=== PATIENT | female | born 1955 | race Caucasian/White ===

== ENCOUNTER 2017-12-27 22:42 | Emergency (ER) | payer OTHER, SELFPAY ==
[2017-12-27] VITALS (13 sets, daily range): BP systolic 93–134; BP diastolic 62–83; PULSE 82–94; RESP 13–30; TEMP 36.3; O2SAT 96–99
--- NOTE | 2017-12-27 00:45 | DI.CT_ITS ---
SYMPTOM/DIAGNOSIS: LT SIDED CHEST PAIN CTA THORAX: CT angiography was performed with multi slice acquisition and multi planar and 3D reconstruction. CT scan of the chest was performed according to the pulmonary embolus protocol. The peripheral pulmonary arteries are not well opacified. No evidence of a central pulmonary artery embolus is seen. The thoracic aorta is intact and of normal caliber. No dissection or aneurysm is present. Heart size is within normal limits. No significant pericardial effusion is seen. Coronary artery calcifications are present. No evidence of thoracic adenopathy is seen. No pleural effusion or pneumothorax is identified. Extensive emphysematous changes are present throughout the lungs. There is a lobulated soft tissue mass in the right upper lobe posteriorly which has shown significant increase in size and measures 2.8 cm. by 1.8 cm. No other pulmonary nodules are identified. No focal consolidating infiltrates are seen. The upper abdominal images are grossly unremarkable. There are mild degenerative changes seen in the spine. IMPRESSION: 1. Suboptimal evaluation of the peripheral pulmonary arteries. No evidence of a central pulmonary embolus. 2. No evidence of thoracic aortic dissection or aneurysm. 3. 2.8 cm. soft tissue pleural based mass in the right upper lobe posteriorly. Concerning for neoplasm. PET CT scan should be considered. 4. Severe emphysematous changes in the lungs.
[2017-12-27 22:59] LABS: Abs Immature Grans 0.03 k/cumm (0.0-0.09); Absolute Basophil Count 0.04 k/cumm (0.0-0.2); Absolute Eosinophil Count 0.16 k/cumm (0.0-0.7); Absolute Lymphocyte Count 2.99 k/cumm (1.2-3.4); Absolute Monocyte Count 1.05 k/cumm (0.11-0.7); Basophils % 0.3; Eosinophils % 1.4; HCT 40.5 % (36.0-46.0); HGB 13.2 g/dL (12.0-15.5); Immature Grans % 0.3; Lymphocytes % 25.6; Mean Corp. HGB Concentration 32.6 g/dL (32.0-36.0); Mean Corpuscular Hemoglobin 30.3 pg (27.0-33.0); Mean Corpuscular Volume 93.1 fL (80-95); Mean Platelet Volume 10.3 fL (8.0-11.0); Neutrophils % 63.4; Platelet Count 293 x1000/uL (130-400); RBC 4.35 m/cumm (4.00-5.20); RBC Distribution Width 13.1 % (11.7-14.6); White Blood Cell Count 11.69 k/cumm (4.4-10.8)
--- NOTE | 2017-12-27 22:59 | W.ED.GENAD ---
Discharge Plan Disposition Patient Disposition: HOME Condition: Stable Discharge Details Chief Complaint: Chest Pain Clinical Impression: Chest pain Reason For Visit: JONATHAN Primary Care Provider: Jose Koehler ED Provider: Larry Barbour Home Meds and New Rx's Prescriptions: Continue alprazolam 1 MG tablet 1 mg PO PRN PRNRF: 0 fluticasone-salmeterol [Advair Diskus] 1 EACH blister with device 1 puff Inhalation BID RF: 0 albuterol sulfate [ProAir HFA] 200 PUFF HFA aerosol inhaler 2 puff Inhalation PRN PRNRF: 0 tiotropium bromide [Spiriva with HandiHaler] 1 PUFF capsule, w/inhalation device 1 cap Inhalation DAILY RF: 0 baclofen 10 MG tablet 10 mg PO PRN PRNRF: 0 prednisone 2.5 MG tablet 2.5 mg PO DAILY RF: 0 gabapentin 300 MG capsule 600 - 900 mg PO DIRECTED RF: 0 montelukast 10 MG tablet 10 mg PO DAILY RF: 0 furosemide 20 MG tablet 20 mg PO PRN PRNRF: 0 omeprazole 20 mg Capsule,Delayed Release(Dr/Ec) 20 mg PO BID RF: 0 Discharge Instructions Instructions: Chest Pain (ED) Additional Instructions: Your cat scan showed a lung mass. You need to follow up with a primary care in this area to establish care and have referrals made to oncology as soon as possible. I have placed you on our care manger's follow up list to try and assist you in finding a local provider return to the emergency department for severe worsening of pain, fevers or difficulty breathing worse from baseline Discharge Data Discharge Physician: Larry Barbour Medical Decision Making 62 yo female with hx of copd normally on 8 LNC per the pt who comes in with cp that started around 8pm while sitting at home. Denies sob, n/v, diaphoresis, pain with exertion. I suspect her pain is musculoskeletal in nature given reproducible nature, and it is descrbied as intermittent and sharp stabbing sensation. no radation of pain, diaphoresis, n/v and no pain with exertion so doubt acs at this time, ecg unremrakble. Given the sharp stabbing sensation of the pain will obtain imaging to eval for pe and dissection. pt's labs unremarkable, first CTA infiltrated in arm, I placed u/s iv and images obtained, I do no see any acute pathology, awaiting vrad, will send second troponin labs unremarkable, her pain has much improved and she now does remember straininer her left arm while moving o2 bottles at home. Her CTA shows no acute pathology but does have a lung mass. she is aware of this but hasn't had follow up for this. Her pcp is in [place] per pt and can't get her meds filled here due to having [place] per pt. Will place on career information specialist's list to have her f/u with a pcp in this area [place] for the lung mass and establish local care. Return precautions given Differential Diagnosis chest wall pain, nstemi, acs, pe, dissection Imaging Data Radiologic Study: Attestation: I personally reviewed and interpreted this imaging study as follows: Imaging: CT Scan My impression: no acute findings, lung mass Radiologist's impression: lung mass Lab Data Lab results reviewed: Yes I reviewed the patient's lab results. Lab results narrative: no significant abnormalities ECG Data Attestation: I personally reviewed and interpreted this ECG (s) as follows: Prior ECG tracings: available for review Interpretation: normal sinus rhythm, rate of 93, pr 162, no acute st t wave changes HPI General Mode of arrival: EMS. Date/Time Provider Initiated Documentation: 12/27/17 22:50. Limitations to Documentation: no limitations. Information obtained by: patient. History of Present Illness 62 year old F presents to the emergency department with the chief complaint of chest pain, described as moderate, with intensity rated at 5. Quality is described as stabbing, and is localized to the chest. Patient reports no radiation. Patient started experiencing this hour(s) (3) and it has been intermittent. No relieving factors improve symptom(s), No exacerbating factors reported . Patient notes no other symptoms.. Patient did receive the following treatments prior to arrival, none Related Data Home Medications Medication Instructions Recorded Confirmed albuterol sulfate [ProAir HFA] 2 puff INHALATION PRN PRN 10/05/16 12/27/17 alprazolam 1 mg PO PRN PRN 10/05/16 12/27/17 baclofen 10 mg PO PRN PRN 10/05/16 12/27/17 fluticasone-salmeterol [Advair 1 puff INHALATION BID 10/05/16 12/27/17 Diskus] furosemide 20 mg PO PRN PRN 10/05/16 12/27/17 gabapentin 600 - 900 mg PO DIRECTED 10/05/16 12/27/17 montelukast 10 mg PO DAILY 10/05/16 12/27/17 prednisone 2.5 mg PO DAILY 10/05/16 12/27/17 tiotropium bromide [Spiriva with 1 cap INHALATION DAILY 10/05/16 12/27/17 HandiHaler] omeprazole 20 mg PO BID 12/27/17 12/27/17 Allergies Allergy/AdvReac Type Severity Reaction Status Date / Time hydromorphone [From Dilaudid] AdvReac Unverified 12/27/17 22:52 General Stated Complaint: Chest Pain CASA: 2 Review of Systems Review of Systems All systems reviewed & are unremarkable except as noted in HPI and below Constitutional Denies chills, Denies fever(s) and Denies weakness Eyes Denies loss of vision ENT Denies change in voice Cardiovascular Reports chest pain and Denies dyspnea Respiratory Denies dyspnea Gastrointestinal Denies abdominal pain, Denies nausea and Denies vomiting Genitourinary Denies dysuria Musculoskeletal Denies joint swelling Integumentary/Breasts Denies rash Neurologic Denies loss of vision and Denies weakness Psychiatric Denies depression Endocrine Denies cold intolerance and Denies heat intolerance Allergic/Immunologic Reports urticaria [facility] Social History Smoking/Tobacco Use Status: Former Tobacco Use Exam Const General: no acute distress Orientation: alert HENMT Head: normal to inspection Ears: external ears normal General nose exam: external nose normal Mouth: moist mucous membranes Eyes General: appearance normal, both eyes and all related structures Neck Neck: normal visual inspection Chest Chest: normal inspection of the chest and other (no rashes, pain with palpation to the left upper chest) Resp Effort & Inspection: normal respiratory effort and able to speak in complete sentences Cardio Rate: regular rate Skin General skin exam: no rashes or lesions noted Neuro General: alert and oriented x3 Extrem General: normal to inspection Psych Mental Status: mental status grossly normal Course Vital Signs Temperature 36.3 C L 12/27/17 22:36 Pulse 94 H 12/27/17 22:36 Respiratory Rate 20 12/27/17 22:36 Blood Pressure 134/83 12/27/17 22:36 Pulse Oximetry 99 12/27/17 22:36 Temperature 36.3 C L 12/27/17 22:36 Temperature Source Skin 12/27/17 22:36 Pulse 94 H 12/27/17 22:36 Respiratory Rate 20 12/27/17 22:36 Respiratory Effort 12/27/17 22:49 Blood Pressure 134/83 12/27/17 22:36 Pulse Oximetry 99 12/27/17 22:36 Oxygen Delivery Method Nasal Cannula 12/27/17 22:36 Oxygen Flow Rate 8 12/27/17 22:36 Pain Level 9 12/27/17 22:36
[2017-12-27 23:02] LABS: Absolute Neutrophil Count 7.41 k/cumm (1.2-6.7)
[2017-12-27] MEDS: Aspirin 325 MG TAB PO (23:02)
[2017-12-27 23:16] LABS: ALT 31 U/L (12-78); AST 16 U/L (15-37); Albumin 3.2 g/dL (3.4-5.0); Alkaline Phosphatase 103 U/L (46-116); Anion Gap 5.1 mmol/L (3-11); BUN 15 mg/dL (7-18); Bilirubin, Total 0.2 mg/dL (0.2-1.0); CO2 34.9 mmol/L (21.0-32.0); CREATININE 0.63 mg/dL (0.55-1.02); Calcium 8.7 mg/dL (8.5-10.1); Chloride 102 mmol/L (98-107); Glucose 121 mg/dL (70-100); Potassium 3.6 mmol/L (3.5-5.1); Sodium 142 mmol/L (136-145); Total Protein 6.7 g/dL (6.4-8.2); Troponin I < 0.02 ng/mL (0.00-0.06)
[2017-12-27] MEDS: fentaNYL 100 MCG/2 ML VIAL IVP (23:21)
[2017-12-27 23:22] LABS: PTT Activated 22.5 sec (21.0-31.4)
[2017-12-27] MEDS: Omnipaque 350 MG/ML 100 ML BTL IJ (23:50)
[2017-12-28] VITALS: PULSE 82; RESP 23; O2SAT 96
[2017-12-28 00:02] VITALS: BP 149/55; PULSE 83; PULSE 86; RESP 22; O2SAT 94
[2017-12-28 00:10] VITALS: PULSE 84; RESP 13; O2SAT 96
[2017-12-28 00:16] VITALS: BP 143/76; PULSE 82; PULSE 84; RESP 20; O2SAT 95
[2017-12-28 00:50] LABS: Troponin I < 0.02 ng/mL (0.00-0.06)
[2017-12-28] MEDS: Omnipaque 350 MG/ML 100 ML BTL IJ (00:55)
--- NOTE | 2017-12-28 02:03 | DI.VRAD_ITS ---
EXAM: CT Angiography Chest With Intravenous Contrast EXAM DATE/TIME: Exam ordered 12/27/2017 10:58 PM CLINICAL HISTORY: 62 years old, female; Pain; Chest pain; Left-sided chest pain; Prior surgery; Surgery date: 6+ months; Surgery type: Shoulder surgery; Patient HX: Left sided chest pain severe; Additional info: ? Pe or disecton TECHNIQUE: Axial computed tomographic angiography images of the chest with intravenous contrast using pulmonary embolism protocol. MIP reconstructed images were created and reviewed. Coronal and sagittal reformatted images were created and reviewed. CONTRAST: 216 mL of Omnipaque 350 administered intravenously. COMPARISON: CT CHEST FOR PULMONARY EMBOLUS 10/05/2016 2:58 PM FINDINGS: Pulmonary arteries: Unremarkable. No pulmonary embolism. Aorta: Atherosclerotic aorta. No aneurysm. Lungs: Extensive centrilobular emphysema. There is a 2.3 x 1.7 cm lobular soft tissue mass in the right posterior upper lobe which has increased in size since the prior study, previously 1.3 x 0.9 cm, highly suspicious for neoplasm. Pleural space: Unremarkable. No significant effusion. No pneumothorax. Heart: Unremarkable. No cardiomegaly. No significant pericardial effusion. Bones/joints: There is a surgical anchor in the right humerus. No suspicious osseous findings. Soft tissues: Unremarkable. Lymph nodes: No pathologic size adenopathy. Upper abdomen: There is a right posterior diaphragmatic hernia containing fat. IMPRESSION: Enlarging soft tissue mass in the posterior right upper lobe highly suspicious for neoplasm. Suggest correlation with PET CT. Extensive centrilobular emphysema. No evidence of aortic dissection or pulmonary emboli. Dictated and Authenticated by: Gayle Cunningham MD. Ordering:YELENA CAMEJO MD
[2017-12-28 03:12] VITALS: BP 143/76; PULSE 84; RESP 20; TEMP 36.3; O2SAT 95
--- NOTE | 2017-12-28 08:24 | PDOC.ERCMPRO ---
Care Management Progress Note 12/28/17-Pt seen for chest pain on 12/27/[address] Josselyn Barbour . Lung mass found on imaging. Faxed f/u THANH referral to [facility] as Dr. Eusebia Benoit is listed as Pt's PCP. TIERRA left a VM for Marysol Quijano'juan , Clinical Coordinator.
--- NOTE | 2017-12-28 08:31 | CMPROGNOTE_ITS ---
Care Management Progress Note 12/28/17-Pt seen for chest pain on 12/27/[address] Josselyn Barbour . Lung mass found on imaging. Faxed f/u THANH referral to [facility] as Dr. Eusebia Benoit is listed as Pt's PCP. TIERRA left a VM for Marysol Quijano'juan , Clinical Coordinator.
== END 2017-12-28 02:19 | disposition home or self-care (01) ==
PROVIDERS: Emergency Provider Emergency Medicine; PCP Family Medicine
DX: R07.9 Chest pain, unspecified (principal); R91.8 Other nonspecific abnormal finding of lung field; J44.9 Chronic obstructive pulmonary disease, unspecified; Z87.891 Personal history of nicotine dependence; Z99.81 Dependence on supplemental oxygen
CPT/HCPCS: 36415; 71275; 80053; 93005; 96374; 99285; 83735; 84484; 85025; 85610; 85730; 93010; J3490

== ENCOUNTER 2018-01-15 00:40 | Outpatient (CLI) | payer OTHER, SELFPAY ==
[2018-01-15] MEDS: Gadoterate meglumine 20 ML VIAL 10 ML IVP (15:05)
--- NOTE | 2018-01-15 15:20 | DI.MRI_ITS ---
SYMPTOMS/DIAGNOSIS: RIGHT LUNG MASS, R91.8, ? METS MRI OF THE BRAIN: T2 sagittal, T1, T2, FLAIR, diffusion and gradient-echo axial and post gadolinium T1 axial and coronal sequences were performed. No intracranial hemorrhage, mass or infarct is seen. There are a few tiny high signal lesions, which may represent mild small vessel disease. There are no abnormal areas of enhancement. The ventricles are normal in size. There is some fluid in the right mastoid air cells. The left mastoid air cells show minimal amount of fluid. The orbits and pituitary are unremarkable. The vascular flow voids appear intact. IMPRESSION: No evidence of metastatic disease. A few tiny high signal lesions in the white matter could represent early small vessel disease, but are nonspecific.
== END 2018-01-15 01:00 ==
PROVIDERS: PCP Family Medicine; Visit Provider Surgery
DX: R91.8 Other nonspecific abnormal finding of lung field (principal); I67.9 Cerebrovascular disease, unspecified
CPT/HCPCS: 70553

== ENCOUNTER 2018-02-12 02:01 | Outpatient (CLI) | payer OTHER, SELFPAY | END 2018-02-12 02:21 | PROVIDERS: PCP Family Medicine; Visit Provider Radiology Radiation Oncology | DX: R69 Illness, unspecified (principal) ==

== ENCOUNTER 2018-04-30 11:40 | Outpatient (REF) | payer OTHER, SELFPAY ==
[2018-05-05 15:55] LABS: 6-monoacetylmorphine Not Detected ng/mL (Cutoff: 25); Amphetamines Presumptive Positive ng/mL (Cutoff: 500); Barbiturates Negative ng/mL (Cutoff: 200); Benzodiazepines Negative ng/mL (Cutoff: 100); Buprenorphine Not Detected ng/mL (Cutoff: 5); Cocaine Negative ng/mL (Cutoff: 150); Codeine Not Detected ng/mL (Cutoff: 25); Comment Normal; Creatinine, U 214.5 mg/dL; Dihydrocodeine Not Detected ng/mL (Cutoff: 25); EDDP Not Detected ng/mL (Cutoff: 25); Fentanyl Not Detected ng/mL (Cutoff: 2); Hydrocodone Not Detected ng/mL (Cutoff: 25); Hydromorphone Not Detected ng/mL (Cutoff: 25); Hydromorphone-3-beta-glucuroni Not Detected ng/mL (Cutoff: 100); Meperidine Not Detected ng/mL (Cutoff: 25); Methadone Not Detected ng/mL (Cutoff: 25); Morphine Not Detected ng/mL (Cutoff: 25); N-desmethyltapentadol Not Detected ng/mL (Cutoff: 50); Naloxone Not Detected ng/mL (Cutoff: 25); Norbuprenorphine Not Detected ng/mL (Cutoff: 5); Norfentanyl Not Detected ng/mL (Cutoff: 2); Norhydrocodone Not Detected ng/mL (Cutoff: 25); Normeperidine Not Detected ng/mL (Cutoff: 25); Noroxycodone Present ng/mL (Cutoff: 25); Noroxymorphone Present ng/mL (Cutoff: 25); O-desmethyltramadol Not Detected ng/mL (Cutoff: 25); Phencyclidine Negative ng/mL (Cutoff: 25); Propoxyphene Not Detected ng/mL (Cutoff: 25); Specific Gravity 1.016; Tapentadol Not Detected ng/mL (Cutoff: 25); Tetrahydrocannabinol Negative ng/mL (Cutoff: 50); Tramadol Not Detected ng/mL (Cutoff: 25); pH 5.7
[2018-05-07 09:47] LABS: MDMA (Ecstasy) Negative ng/mL (Cutoff: 25); Methamphetamine Negative ng/mL (Cutoff: 25); Phentermine Negative ng/mL (Cutoff: 25); Pseudoephedrine/Ephedrine Negative ng/mL (Cutoff: 25)
== END 2018-04-30 12:00 ==
LOC: LBN 11:40
PROVIDERS: Visit Provider Nurse Practitioner Family
DX: M96.1 Postlaminectomy syndrome, not elsewhere classified (principal); Z79.891 Long term (current) use of opiate analgesic
CPT/HCPCS: 80307; 80324; 80364

== ENCOUNTER 2018-07-30 13:19 | Outpatient (REF) | payer OTHER, MEDICAID, SELFPAY ==
[2018-08-02 21:56] LABS: 6-monoacetylmorphine Not Detected ng/mL (Cutoff: 25); Amphetamines Presumptive Positive ng/mL (Cutoff: 500); Barbiturates Negative ng/mL (Cutoff: 200); Benzodiazepines Presumptive Positive ng/mL (Cutoff: 100); Buprenorphine Not Detected ng/mL (Cutoff: 5); Cocaine Negative ng/mL (Cutoff: 150); Codeine Not Detected ng/mL (Cutoff: 25); Comment Normal; Creatinine, U 213.1 mg/dL; Dihydrocodeine Not Detected ng/mL (Cutoff: 25); EDDP Not Detected ng/mL (Cutoff: 25); Fentanyl Not Detected ng/mL (Cutoff: 2); Hydrocodone Not Detected ng/mL (Cutoff: 25); Hydromorphone Not Detected ng/mL (Cutoff: 25); Hydromorphone-3-beta-glucuroni Not Detected ng/mL (Cutoff: 100); Meperidine Not Detected ng/mL (Cutoff: 25); Methadone Not Detected ng/mL (Cutoff: 25); Morphine Not Detected ng/mL (Cutoff: 25); N-desmethyltapentadol Not Detected ng/mL (Cutoff: 50); Naloxone Not Detected ng/mL (Cutoff: 25); Norbuprenorphine Not Detected ng/mL (Cutoff: 5); Norfentanyl Not Detected ng/mL (Cutoff: 2); Norhydrocodone Not Detected ng/mL (Cutoff: 25); Normeperidine Not Detected ng/mL (Cutoff: 25); Noroxycodone Present ng/mL (Cutoff: 25); Noroxymorphone Present ng/mL (Cutoff: 25); O-desmethyltramadol Not Detected ng/mL (Cutoff: 25); Phencyclidine Negative ng/mL (Cutoff: 25); Propoxyphene Not Detected ng/mL (Cutoff: 25); Specific Gravity 1.018; Tapentadol Not Detected ng/mL (Cutoff: 25); Tetrahydrocannabinol Negative ng/mL (Cutoff: 50); Tramadol Not Detected ng/mL (Cutoff: 25); pH 5.7
[2018-08-03 08:36] LABS: 2-OH-Ethyl-Flurazepam Negative ng/mL (Cutoff: 100); 7-NH-Clonazepam Negative ng/mL (Cutoff: 100); 7-NH-Flunitrazepam Negative ng/mL (Cutoff: 50); Alpha OH-Alprazolam 191 ng/mL (Cutoff: 100); Alpha-OH-Triazolam Negative ng/mL (Cutoff: 100); Benzodiazepines Interpretation Positive.; Lorazepam Negative ng/mL (Cutoff: 100); Temazepam Negative ng/mL (Cutoff: 100)
[2018-08-04 05:34] LABS: MDA (Ecstasy Metabolite) Negative ng/mL (Cutoff: 25); MDMA (Ecstasy) Negative ng/mL (Cutoff: 25); Methamphetamine Negative ng/mL (Cutoff: 25); Phentermine Negative ng/mL (Cutoff: 25); Pseudoephedrine/Ephedrine Negative ng/mL (Cutoff: 25)
== END 2018-07-30 13:39 ==
LOC: LBN 13:19
PROVIDERS: PCP Nurse Practitioner Family; Visit Provider Nurse Practitioner Family
DX: M96.1 Postlaminectomy syndrome, not elsewhere classified (principal); Z79.891 Long term (current) use of opiate analgesic
CPT/HCPCS: 80307; 80324; 80364; 80346

== ENCOUNTER 2018-11-20 15:12 | Outpatient (REF) | payer OTHER, MEDICAID, SELFPAY ==
[2018-11-25 04:01] LABS: 6-monoacetylmorphine Not Detected ng/mL (Cutoff: 25); Amphetamines Presumptive Positive ng/mL (Cutoff: 500); Barbiturates Negative ng/mL (Cutoff: 200); Benzodiazepines Negative ng/mL (Cutoff: 100); Buprenorphine Not Detected ng/mL (Cutoff: 5); Cocaine Negative ng/mL (Cutoff: 150); Codeine Not Detected ng/mL (Cutoff: 25); Comment Normal; Creatinine, U 253.5 mg/dL; Dihydrocodeine Not Detected ng/mL (Cutoff: 25); EDDP Not Detected ng/mL (Cutoff: 25); Fentanyl Not Detected ng/mL (Cutoff: 2); Hydrocodone Not Detected ng/mL (Cutoff: 25); Hydromorphone Not Detected ng/mL (Cutoff: 25); Hydromorphone-3-beta-glucuroni Not Detected ng/mL (Cutoff: 100); Meperidine Not Detected ng/mL (Cutoff: 25); Methadone Not Detected ng/mL (Cutoff: 25); Morphine Not Detected ng/mL (Cutoff: 25); N-desmethyltapentadol Not Detected ng/mL (Cutoff: 50); Naloxone Not Detected ng/mL (Cutoff: 25); Norbuprenorphine Not Detected ng/mL (Cutoff: 5); Norfentanyl Not Detected ng/mL (Cutoff: 2); Norhydrocodone Not Detected ng/mL (Cutoff: 25); Normeperidine Not Detected ng/mL (Cutoff: 25); Noroxycodone Present ng/mL (Cutoff: 25); Noroxymorphone Present ng/mL (Cutoff: 25); O-desmethyltramadol Not Detected ng/mL (Cutoff: 25); Phencyclidine Negative ng/mL (Cutoff: 25); Propoxyphene Not Detected ng/mL (Cutoff: 25); Specific Gravity 1.017; Tapentadol Not Detected ng/mL (Cutoff: 25); Tetrahydrocannabinol Presumptive Positive ng/mL (Cutoff: 50); Tramadol Not Detected ng/mL (Cutoff: 25); pH 5.7
[2018-11-27 08:31] LABS: Carboxy-THC Interpretation Positive.; Delta-9 CarboxyThc by LC-MS/MS 3 ng/mL (Cutoff:<3); MDMA (Ecstasy) Negative ng/mL (Cutoff: 25); Methamphetamine Negative ng/mL (Cutoff: 25); Phentermine Negative ng/mL (Cutoff: 25); Pseudoephedrine/Ephedrine Negative ng/mL (Cutoff: 25)
== END 2018-11-20 15:32 ==
LOC: LBN 15:12
PROVIDERS: PCP Nurse Practitioner Family; Visit Provider Nurse Practitioner Family
DX: M96.1 Postlaminectomy syndrome, not elsewhere classified (principal); Z79.891 Long term (current) use of opiate analgesic
CPT/HCPCS: 80307; 80324; 80349; 80364

== ENCOUNTER 2019-02-14 14:00 | Outpatient (REF) | payer OTHER, MEDICAID, SELFPAY ==
[2019-02-18 08:01] LABS: 2-Hydroxy Ethyl Flurazepam Not Detected ng/mL (Cutoff: 10); Alpha-Hydroxy Midazolam Not Detected ng/mL (Cutoff: 10); Alpha-Hydroxy Triazolam Not Detected ng/mL (Cutoff: 10); Alpha-Hydroxyalprazolam Not Detected ng/mL (Cutoff: 10); Alpha-OH-alprazolam Glucuronid Present ng/mL (Cutoff: 50); Alprazolam Not Detected ng/mL (Cutoff: 10); Amphetamines Presumptive Positive ng/mL (Cutoff: 500); Barbiturates Negative ng/mL (Cutoff: 200); Chlordiazepoxide Not Detected ng/mL (Cutoff: 10); Clobazam Not Detected ng/mL (Cutoff: 10); Clonazepam Not Detected ng/mL (Cutoff: 10); Cocaine Negative ng/mL (Cutoff: 150); Comment Normal; Creatinine, U 359.6 mg/dL; Diazepam Not Detected ng/mL (Cutoff: 10); Flurazepam Not Detected ng/mL (Cutoff: 10); Lorazepam Not Detected ng/mL (Cutoff: 10); Lorazepam Glucuronide Not Detected ng/mL (Cutoff: 50); Midazolam Not Detected ng/mL (Cutoff: 10); N-Desmethylclobazam Not Detected ng/mL (Cutoff: 200); Oxazepam Glucuronide Not Detected ng/mL (Cutoff: 50); Phencyclidine Negative ng/mL (Cutoff: 25); Prazepam Not Detected ng/mL (Cutoff: 10); Temazepam Not Detected ng/mL (Cutoff: 10); Temazepam Glucuronide Not Detected ng/mL (Cutoff: 50); Tetrahydrocannabinol Negative ng/mL (Cutoff: 50); Triazolam Not Detected ng/mL (Cutoff: 10); Zolpidem Phenyl-4-Carboxy acid Not Detected ng/mL (Cutoff: 10); pH 5.7
[2019-02-18 09:18] LABS: MDMA (Ecstasy) Negative ng/mL (Cutoff: 25); Methamphetamine Negative ng/mL (Cutoff: 25); Phentermine Negative ng/mL (Cutoff: 25); Pseudoephedrine/Ephedrine Negative ng/mL (Cutoff: 25)
[2019-02-18 16:55] LABS: Codeine Not Detected ng/mL (Cutoff: 25)
[2019-02-18 16:56] LABS: Morphine Not Detected ng/mL (Cutoff: 25)
[2019-02-18 16:57] LABS: 6-monoacetylmorphine Not Detected ng/mL (Cutoff: 25)
[2019-02-18 16:58] LABS: Hydrocodone Not Detected ng/mL (Cutoff: 25); Norhydrocodone Not Detected ng/mL (Cutoff: 25)
[2019-02-18 16:59] LABS: Dihydrocodeine Not Detected ng/mL (Cutoff: 25); Hydromorphone Not Detected ng/mL (Cutoff: 25)
[2019-02-18 17:00] LABS: Hydromorphone-3-beta-glucuroni Not Detected ng/mL (Cutoff: 100)
[2019-02-18 17:01] LABS: Noroxycodone Present ng/mL (Cutoff: 25)
[2019-02-18 17:02] LABS: Fentanyl Not Detected ng/mL (Cutoff: 2); Noroxymorphone Present ng/mL (Cutoff: 25)
[2019-02-18 17:03] LABS: Meperidine Not Detected ng/mL (Cutoff: 25); Norfentanyl Not Detected ng/mL (Cutoff: 2)
[2019-02-18 17:04] LABS: Naloxone Not Detected ng/mL (Cutoff: 25); Normeperidine Not Detected ng/mL (Cutoff: 25)
[2019-02-18 17:05] LABS: EDDP Not Detected ng/mL (Cutoff: 25); Methadone Not Detected ng/mL (Cutoff: 25); Propoxyphene Not Detected ng/mL (Cutoff: 25)
[2019-02-18 17:06] LABS: O-desmethyltramadol Not Detected ng/mL (Cutoff: 25); Tramadol Not Detected ng/mL (Cutoff: 25)
[2019-02-18 17:07] LABS: N-desmethyltapentadol Not Detected ng/mL (Cutoff: 50); Tapentadol Not Detected ng/mL (Cutoff: 25)
[2019-02-18 17:08] LABS: Buprenorphine Not Detected ng/mL (Cutoff: 5); Norbuprenorphine Not Detected ng/mL (Cutoff: 5)
== END 2019-02-14 14:20 ==
LOC: LBN 14:00
PROVIDERS: PCP Nurse Practitioner Family; Visit Provider Nurse Practitioner Family
DX: M96.1 Postlaminectomy syndrome, not elsewhere classified (principal); Z79.891 Long term (current) use of opiate analgesic
CPT/HCPCS: 80307; 80324; 80347; 80364

== ENCOUNTER 2019-02-26 13:16 | Outpatient (CLI) | payer OTHER, MEDICAID, SELFPAY ==
[2019-02-26 13:24] VITALS: BP 170/89; PULSE 85; RESP 24; TEMP 36.8; O2SAT 94
[2019-02-26] MEDS: Bupivacaine 0.25% Pres-Free 30 ML VIAL IJ (14:25)
[2019-02-26 14:33] VITALS: PULSE 86; O2SAT 94
--- NOTE | 2019-02-26 14:33 | PDOC.PAIN_ITS ---
Pain Clinic Procedure Note Procedure Note Procedure Note: PAIN CLINIC PROCEDURE NOTE PRE-OPERATIVE DIAGNOSIS: MYOFASCIAL PAIN POST-OPERATIVE DIAGNOSIS: SAME ABOVE PATIENT WAS BROUGHT IN PROCEDURE ROOM AND KEPT IN SEATED POSITION. O2 MONITOR WAS PLACED AND PATIENT WAS KEPT ON HER HOME SUPPLEMENTAL O2. CONSENT WAS OBTAINED AFTER EXPLANATION OF THE PROCEDURE AND POTENTIAL RISKS OF BLEEDING, INFECTION, SORENESS, WORSENING PAIN, PNEUMOTHORAX. PROPER TIME OUT WAS PERFORMED IN PRESENT WITH RN. TRIGGER POINTS WERE IDENTIFIED WITH PALPATION OVER BILATERAL TRAPEZIUS, RIGHT LATERAL SCAPULA AND MARKED WITH STERILE MARKER. SKINW PREPPED IN STERILE FASHION WITH CLOROHEXADINE. THEN 22 GAUGE 1.5IN NEEDLE PENET RATED TO THE IDENTIFIED TRIGGER POINTS, ~1.5CC OF SOLUTION CONTAINING 1:1 MIX OF 0.25% BUPIVOCAINE AND 1% LIDOCAINE WAS INJECTED IN EACH TRIGGER POINTS. MUSCLE TWITCHING WAS OBSERVED AFTER MULTIPLE PASSES OF THE NEEDLE AT EACH TRIGGER POINTS. O2 SATURATION WAS MONITORED AND REMAIN UNCHANGED. PATIENT TOLERATED PROCEDURE WELL WITHOUT ISSUE. CHERISE PASTOR MD PAIN MANAGEMENT
== END 2019-02-26 13:36 ==
PROVIDERS: PCP Nurse Practitioner Family; Visit Provider Internal Medicine
DX: M79.18 Myalgia, other site (principal)
CPT/HCPCS: 20552

== ENCOUNTER 2019-05-29 14:35 | Outpatient (REF) | payer OTHER, MEDICAID, SELFPAY ==
[2019-06-02 09:06] LABS: 2-Hydroxy Ethyl Flurazepam Not Detected ng/mL (Cutoff: 10); 6-monoacetylmorphine Not Detected ng/mL (Cutoff: 25); Alpha-Hydroxy Midazolam Not Detected ng/mL (Cutoff: 10); Alpha-Hydroxy Triazolam Not Detected ng/mL (Cutoff: 10); Alpha-Hydroxyalprazolam Not Detected ng/mL (Cutoff: 10); Alpha-OH-alprazolam Glucuronid Not Detected ng/mL (Cutoff: 50); Alprazolam Not Detected ng/mL (Cutoff: 10); Amphetamines Presumptive Positive ng/mL (Cutoff: 500); Barbiturates Negative ng/mL (Cutoff: 200); Buprenorphine Not Detected ng/mL (Cutoff: 5); Chlordiazepoxide Not Detected ng/mL (Cutoff: 10); Clobazam Not Detected ng/mL (Cutoff: 10); Clonazepam Not Detected ng/mL (Cutoff: 10); Cocaine Negative ng/mL (Cutoff: 150); Codeine Not Detected ng/mL (Cutoff: 25); Comment Normal; Creatinine, U 289.7 mg/dL; Diazepam Not Detected ng/mL (Cutoff: 10); Dihydrocodeine Not Detected ng/mL (Cutoff: 25); EDDP Not Detected ng/mL (Cutoff: 25); Fentanyl Not Detected ng/mL (Cutoff: 2); Flurazepam Not Detected ng/mL (Cutoff: 10); Hydrocodone Not Detected ng/mL (Cutoff: 25); Hydromorphone Not Detected ng/mL (Cutoff: 25); Hydromorphone-3-beta-glucuroni Not Detected ng/mL (Cutoff: 100); Lorazepam Not Detected ng/mL (Cutoff: 10); Lorazepam Glucuronide Not Detected ng/mL (Cutoff: 50); Meperidine Not Detected ng/mL (Cutoff: 25); Methadone Not Detected ng/mL (Cutoff: 25); Midazolam Not Detected ng/mL (Cutoff: 10); Morphine Not Detected ng/mL (Cutoff: 25); N-Desmethylclobazam Not Detected ng/mL (Cutoff: 200); N-desmethyltapentadol Not Detected ng/mL (Cutoff: 50); Naloxone Not Detected ng/mL (Cutoff: 25); Norbuprenorphine Not Detected ng/mL (Cutoff: 5); Norfentanyl Not Detected ng/mL (Cutoff: 2); Norhydrocodone Not Detected ng/mL (Cutoff: 25); Normeperidine Not Detected ng/mL (Cutoff: 25); Noroxycodone Present ng/mL (Cutoff: 25); Noroxymorphone Present ng/mL (Cutoff: 25); O-desmethyltramadol Not Detected ng/mL (Cutoff: 25); Oxazepam Glucuronide Not Detected ng/mL (Cutoff: 50); Phencyclidine Negative ng/mL (Cutoff: 25); Prazepam Not Detected ng/mL (Cutoff: 10); Propoxyphene Not Detected ng/mL (Cutoff: 25); Specific Gravity 1.017; Tapentadol Not Detected ng/mL (Cutoff: 25); Temazepam Not Detected ng/mL (Cutoff: 10); Temazepam Glucuronide Not Detected ng/mL (Cutoff: 50); Tetrahydrocannabinol Negative ng/mL (Cutoff: 50); Tramadol Not Detected ng/mL (Cutoff: 25); Triazolam Not Detected ng/mL (Cutoff: 10); Zolpidem Phenyl-4-Carboxy acid Not Detected ng/mL (Cutoff: 10); pH 5.6
[2019-06-04 05:39] LABS: MDA (Ecstasy Metabolite) Negative ng/mL (Cutoff: 25); MDMA (Ecstasy) Negative ng/mL (Cutoff: 25); Methamphetamine Negative ng/mL (Cutoff: 25); Phentermine Negative ng/mL (Cutoff: 25); Pseudoephedrine/Ephedrine Negative ng/mL (Cutoff: 25)
== END 2019-05-29 14:55 ==
LOC: LBN 14:35
PROVIDERS: PCP Nurse Practitioner Family; Visit Provider Nurse Practitioner Family
DX: M96.1 Postlaminectomy syndrome, not elsewhere classified; Z79.891 Long term (current) use of opiate analgesic
CPT/HCPCS: 80307; 80324; 80347; 80364

== ENCOUNTER 2019-08-22 13:43 | Outpatient (REF) | payer OTHER, MEDICAID, SELFPAY ==
[2019-08-28 13:25] LABS: 2-Hydroxy Ethyl Flurazepam Not Detected ng/mL (Cutoff: 10); 6-monoacetylmorphine Not Detected ng/mL (Cutoff: 25); Alpha-Hydroxy Midazolam Not Detected ng/mL (Cutoff: 10); Alpha-Hydroxy Triazolam Not Detected ng/mL (Cutoff: 10); Alpha-Hydroxyalprazolam Not Detected ng/mL (Cutoff: 10); Alpha-OH-alprazolam Glucuronid Present ng/mL (Cutoff: 50); Alprazolam Not Detected ng/mL (Cutoff: 10); Amphetamines Negative ng/mL (Cutoff: 500); Barbiturates Negative ng/mL (Cutoff: 200); Buprenorphine Not Detected ng/mL (Cutoff: 5); Chlordiazepoxide Not Detected ng/mL (Cutoff: 10); Clobazam Not Detected ng/mL (Cutoff: 10); Clonazepam Not Detected ng/mL (Cutoff: 10); Cocaine Negative ng/mL (Cutoff: 150); Codeine Not Detected ng/mL (Cutoff: 25); Comment Normal; Creatinine, U 285.6 mg/dL; Diazepam Not Detected ng/mL (Cutoff: 10); Dihydrocodeine Not Detected ng/mL (Cutoff: 25); EDDP Not Detected ng/mL (Cutoff: 25); Fentanyl Not Detected ng/mL (Cutoff: 2); Flurazepam Not Detected ng/mL (Cutoff: 10); Hydrocodone Not Detected ng/mL (Cutoff: 25); Hydromorphone Not Detected ng/mL (Cutoff: 25); Hydromorphone-3-beta-glucuroni Not Detected ng/mL (Cutoff: 100); Lorazepam Not Detected ng/mL (Cutoff: 10); Lorazepam Glucuronide Not Detected ng/mL (Cutoff: 50); Meperidine Not Detected ng/mL (Cutoff: 25); Methadone Not Detected ng/mL (Cutoff: 25); Midazolam Not Detected ng/mL (Cutoff: 10); Morphine Not Detected ng/mL (Cutoff: 25); N-Desmethylclobazam Not Detected ng/mL (Cutoff: 200); N-desmethyltapentadol Not Detected ng/mL (Cutoff: 50); Naloxone Not Detected ng/mL (Cutoff: 25); Norbuprenorphine Not Detected ng/mL (Cutoff: 5); Norfentanyl Not Detected ng/mL (Cutoff: 2); Norhydrocodone Not Detected ng/mL (Cutoff: 25); Normeperidine Not Detected ng/mL (Cutoff: 25); Noroxycodone Present ng/mL (Cutoff: 25); Noroxymorphone Present ng/mL (Cutoff: 25); O-desmethyltramadol Not Detected ng/mL (Cutoff: 25); Oxazepam Glucuronide Not Detected ng/mL (Cutoff: 50); Phencyclidine Negative ng/mL (Cutoff: 25); Prazepam Not Detected ng/mL (Cutoff: 10); Propoxyphene Not Detected ng/mL (Cutoff: 25); Specific Gravity 1.019; Tapentadol Not Detected ng/mL (Cutoff: 25); Temazepam Not Detected ng/mL (Cutoff: 10); Temazepam Glucuronide Not Detected ng/mL (Cutoff: 50); Tetrahydrocannabinol Negative ng/mL (Cutoff: 50); Tramadol Not Detected ng/mL (Cutoff: 25); Triazolam Not Detected ng/mL (Cutoff: 10); Zolpidem Phenyl-4-Carboxy acid Not Detected ng/mL (Cutoff: 10); pH 5.6
== END 2019-08-22 14:03 ==
LOC: LBN 13:43
PROVIDERS: PCP Nurse Practitioner Family; Visit Provider Nurse Practitioner Family
DX: G89.29 Other chronic pain (principal); Z79.891 Long term (current) use of opiate analgesic
CPT/HCPCS: 80307; 80347; 80364

== ENCOUNTER 2019-12-11 13:38 | Outpatient (REF) | payer OTHER, MEDICAID, SELFPAY ==
[2019-12-15 14:23] LABS: 2-Hydroxy Ethyl Flurazepam Not Detected ng/mL (Cutoff: 10); 6-monoacetylmorphine Not Detected ng/mL (Cutoff: 25); Alpha-Hydroxy Midazolam Not Detected ng/mL (Cutoff: 10); Alpha-Hydroxy Triazolam Not Detected ng/mL (Cutoff: 10); Alpha-Hydroxyalprazolam Not Detected ng/mL (Cutoff: 10); Alpha-OH-alprazolam Glucuronid Present ng/mL (Cutoff: 50); Alprazolam Present ng/mL (Cutoff: 10); Amphetamines Negative ng/mL (Cutoff: 500); Barbiturates Negative ng/mL (Cutoff: 200); Buprenorphine Not Detected ng/mL (Cutoff: 5); Chlordiazepoxide Not Detected ng/mL (Cutoff: 10); Clobazam Not Detected ng/mL (Cutoff: 10); Clonazepam Not Detected ng/mL (Cutoff: 10); Cocaine Negative ng/mL (Cutoff: 150); Codeine Not Detected ng/mL (Cutoff: 25); Comment Normal; Diazepam Not Detected ng/mL (Cutoff: 10); Dihydrocodeine Not Detected ng/mL (Cutoff: 25); EDDP Not Detected ng/mL (Cutoff: 25); Fentanyl Not Detected ng/mL (Cutoff: 2); Flurazepam Not Detected ng/mL (Cutoff: 10); Hydrocodone Not Detected ng/mL (Cutoff: 25); Hydromorphone Not Detected ng/mL (Cutoff: 25); Hydromorphone-3-beta-glucuroni Not Detected ng/mL (Cutoff: 100); Lorazepam Not Detected ng/mL (Cutoff: 10); Lorazepam Glucuronide Not Detected ng/mL (Cutoff: 50); Meperidine Not Detected ng/mL (Cutoff: 25); Methadone Not Detected ng/mL (Cutoff: 25); Midazolam Not Detected ng/mL (Cutoff: 10); Morphine Not Detected ng/mL (Cutoff: 25); N-Desmethylclobazam Not Detected ng/mL (Cutoff: 200); N-desmethyltapentadol Not Detected ng/mL (Cutoff: 50); Naloxone Not Detected ng/mL (Cutoff: 25); Norbuprenorphine Not Detected ng/mL (Cutoff: 5); Norfentanyl Not Detected ng/mL (Cutoff: 2); Norhydrocodone Not Detected ng/mL (Cutoff: 25); Normeperidine Not Detected ng/mL (Cutoff: 25); Noroxycodone Present ng/mL (Cutoff: 25); Noroxymorphone Present ng/mL (Cutoff: 25); O-desmethyltramadol Not Detected ng/mL (Cutoff: 25); Oxazepam Glucuronide Not Detected ng/mL (Cutoff: 50); Phencyclidine Negative ng/mL (Cutoff: 25); Prazepam Not Detected ng/mL (Cutoff: 10); Propoxyphene Not Detected ng/mL (Cutoff: 25); Specific Gravity 1.021; Tapentadol Not Detected ng/mL (Cutoff: 25); Temazepam Not Detected ng/mL (Cutoff: 10); Temazepam Glucuronide Not Detected ng/mL (Cutoff: 50); Tetrahydrocannabinol Negative ng/mL (Cutoff: 50); Tramadol Not Detected ng/mL (Cutoff: 25); Triazolam Not Detected ng/mL (Cutoff: 10); Zolpidem Phenyl-4-Carboxy acid Not Detected ng/mL (Cutoff: 10); pH 5.5
== END 2019-12-11 13:58 ==
LOC: LBN 13:38
PROVIDERS: PCP Nurse Practitioner Family; Visit Provider Nurse Practitioner Family
DX: G89.29 Other chronic pain (principal); Z79.891 Long term (current) use of opiate analgesic
CPT/HCPCS: 80307; 80347; 80364

== ENCOUNTER 2020-01-22 13:34 | Outpatient (REF) | payer OTHER, MEDICAID, SELFPAY ==
[2020-01-22 19:25] LABS: Abs Immature Grans 0.04 10^3/uL (0.0-0.06); Absolute Basophil Count 0.05 10^3/uL (0.0-0.2); Absolute Lymphocyte Count 2.45 10^3/uL (1.2-3.4); Absolute Monocyte Count 1.14 10^3/uL (0.1-0.8); Basophils % 0.4; Eosinophils % 2.1; HCT 43.1 % (36.0-46.0); HGB 13.7 g/dL (11.2-15.7); Immature Grans % 0.3; Lymphocytes % 20.2; MCH 30.2 pg (27.0-33.0); MCHC 31.8 % (32.0-36.0); MCV 95.1 fL (80-95); MPV 10.7 fL (8.0-11.0); Monocytes % 9.4; Neutrophils % 67.6; Nucleated RBC 0 %; Platelet Count 363 10^3/uL (130-400); RBC 4.53 10^6/uL (3.93-5.22); RDW 12.6 % (11.7-14.6); RDW-SD 43.9 fL; WBC 12.12 10^3/uL (4.4-10.8)
[2020-01-22 19:30] LABS: Absolute Eosinophil Count 0.25 10^3/uL (0.0-0.7); Absolute Neutrophil Count 8.19 10^3/uL (1.2-6.7)
[2020-01-22 19:32] LABS: Anion Gap 5.1 mmol/L (3-11); BUN 20 mg/dL (7-18); CO2 35.9 mmol/L (21.0-32.0); CREATININE 0.85 mg/dL (0.55-1.02); Calcium 8.9 mg/dL (8.5-10.1); Chloride 99 mmol/L (98-107); Glucose 110 mg/dL (74-106); Sodium 140 mmol/L (136-145)
== END 2020-01-22 13:54 ==
LOC: NCHCN 13:34
PROVIDERS: PCP Nurse Practitioner Family; Visit Provider Nurse Practitioner Family
DX: C34.11 Malignant neoplasm of upper lobe, right bronchus or lung (principal)
CPT/HCPCS: 80048; 85025

== ENCOUNTER 2020-05-12 18:41 | Emergency (ER) | payer OTHER, MEDICAID, SELFPAY ==
[2020-05-12] VITALS (20 sets, daily range): BP systolic 153; BP diastolic 104; PULSE 100–122; RESP 21–28; TEMP 36.1; O2SAT 87–100
--- NOTE | 2020-05-12 18:30 | RT.EKG_ITS ---
APPROVED REPORT Exam: Resting ECG Patient Location: E HR:113 bpm ECG Measurements Heart Rate 113 AXIS TX 126 P 99 QRSd 106 QRS 109 QT 317 T -28 QTc 433 Conclusion Sinus tachycardia...rate> 99 Atrial premature complex...SV complex w/ short R-R interval Right axis deviation...QRS axis ( 68,758) I have reviewed and interpreted ECG and agree with software generated interpretation.
--- NOTE | 2020-05-12 18:43 | W.ED.GENAD ---
Discharge Plan Disposition Patient Disposition: HOME Condition: Stable Discharge Details Clinical Impression: Diarrhea, Abdominal pain, Atrial mass, Lung cancer Primary Care Provider: Yulia Waite ED Provider: Larry Barbour [place] Meds and New Rx's Prescriptions: Continued guaifenesin 400 mg tablet 400 mg PO Q6H PRN PRN (Reason: cold symptoms) Qty: 120 RF: 5 pantoprazole 40 mg tablet,delayed release (DR/EC) 40 mg PO DAILY RF: 0 baclofen 10 mg tablet 10 mg PO BID 30 Days Qty: 60 RF: 11 gabapentin 600 mg tablet 600 mg PO QID 30 Days Qty: 120 RF: 11 loratadine [Claritin] 10 mg tablet 10 mg PO DAILY RF: 0 cholecalciferol (vitamin D3) 2,000 unit tablet 2,000 unit PO DAILY RF: 0 ibuprofen 800 mg tablet 800 mg PO Q8H PRNRF: 0 diclofenac sodium [Voltaren] 1 % gel 4 gm TP QID RF: 0 albuterol sulfate 2.5 mg /3 mL (0.083 %) solution for nebulization 2.5 mg IH Q4H PRNRF: 0 oxycodone-acetaminophen 10-325 mg tablet 1 tab PO Q4H MDD 5 tablets/day PRN (Reason: pain) 28 Days Qty: 140 RF: 0 fluticasone propion-salmeterol [Advair Diskus] 1 EACH blister with device 1 puff Inhalation BID RF: 0 montelukast 10 MG tablet 10 mg PO DAILY RF: 0 albuterol sulfate [ProAir HFA] 90 mcg/actuation HFA aerosol inhaler 2 puff Inhalation Q4H PRNRF: 0 alprazolam 1 mg tablet 1 mg PO TID PRNRF: 0 furosemide 20 mg tablet 20 mg PO DAILY PRNRF: 0 baclofen 10 mg tablet 10 mg PO BID RF: 0 pantoprazole 40 mg tablet,delayed release (DR/EC) 40 mg PO ONCE RF: 0 Discharge Instructions Additional Instructions: Your cat scan showed continued lung cancer but also a mass inside your heart you decided you do not want any further testing or therapy given your baseline poor lung function and known untreatable cancer and chose that you want to go home and consult with palliative care I spoke with our care managers who will arrange for outpatient palliative care consult Discharge Data Discharge Date/Time-TO BE ENTERED AT DEPARTURE: 05/12/20 22:42 Medical Decision Making <Jessie Mensah DO - Last Filed: 05/13/20 11:36> 65-year-old female with a history of morbid obesity, anxiety, COPD chronically on 2 L nasal cannula oxygen presents for diarrhea and generalized weakness for the past 2 weeks. Patient initially denied abdominal pain but her abdomen was diffusely tender. Abdomen soft without rigidity but limited due to severe obesity. Heart rate 110s. She is afebrile. Differential diagnosis includes gastroenteritis, C. difficile or infectious colitis, diverticulitis, UTI, pyelonephritis, etc. Will place an IV, screening labs, urinalysis, CT abdomen and pelvis. Due to initial complaint of weakness and difficulty getting out of car on arrival, EKG obtained which notes a rate of 115, sinus, no STEMI and nondiagnostic. Case endorsed to Dr. Barbour to follow-up on labs and imaging and final disposition. Medical Records Medical records reviewed: Yes I reviewed the patient's medical records. ECG Data Attestation: I personally reviewed and interpreted this ECG (s) as follows: Interpretation: Rate of 113, sinus, no acute ST elevation or depression. LA 126. QRS 106. QTc 433. <Larry Barbour MD - Last Filed: 05/12/20 21:40> pt's ct shows continued lung mass which in 2018 was deemed inoperable based on her lung disease and now has filling defect in left atrium concerning for thrombus, atrial myxoma and metastatic disease. I spoke with the patient who is caox4 and has capacity to make her own decisions. I went over these results and prognosis with her copd, lung cancer is poor and she has already been thinking of being on hospice for quite some time now. She currently declines to have any further testing or treatment. We have no beds here unfortunately and she states she wants to go home regardless and be comfortable with her main goal. I spoke with her son Fernando who understands the situation and her mother's wishes. I will place a palliative consult and spoke with care management for expedited follow up Medical Records Medical records reviewed: Yes I reviewed the patient's medical records. Imaging Data Radiologic Study: Attestation: I personally reviewed and interpreted this imaging study as follows: Imaging: CT Scan Radiologist's impression: IMPRESSION: 1. Large filling defect within the left atrium and right upper pulmonary vein. Differential includes thrombus, atrial myxoma and metastatic disease. 2. Progressing severe bullous emphysematous disease. 3. Stable right upper lobe nodule. 4. THIS REPORT CONTAINS FINDINGS THAT MAY BE CRITICAL TO PATIENT CARE. The findings were verbally communicated via telephone conference with Dr. Babrour At 9:18 PM EST on 05/12/2020. The findings were acknowledged and understood no acute findings in abdomen/pelvis HPI <Jessie Mensah, - Last Filed: 05/13/20 11:36> General Mode of arrival: wheelchair. Date/Time Provider Initiated Documentation: 05/12/20 18:42. Limitations to Documentation: no limitations. Information obtained by: patient. HPI Narrative: Patient is a 65-year-old female with a history of morbid obesity, COPD chronically on 6 L nasal cannula who presents for diarrhea and generalized weakness for the past 2 weeks. She states she has had about 5 episodes of watery or loose brown or rust colored diarrhea daily. She also admits to urinary frequency but denies any hematuria. She denies fever, abdominal pain, nausea, vomiting, recent sick contacts, recent travel, recent antibiotics or new medications. She denies any recent hospitalizations. Related Data Home Medications Medication Instructions Recorded Confirmed fluticasone propion-salmeterol 1 puff INHALATION BID 10/05/16 02/05/20 [Advair Diskus] montelukast 10 mg PO DAILY 10/05/16 05/12/20 guaifenesin 400 mg tablet 400 mg PO Q6H PRN PRN #120 tab 01/01/18 02/05/20 albuterol sulfate 2.5 mg IH Q4H PRN 01/25/18 02/05/20 albuterol sulfate 90 mcg/actuation 2 puff INHALATION Q4H PRN gm 01/25/18 02/05/20 aerosol inhaler alprazolam 1 mg tablet 1 mg PO TID PRN tab 01/25/18 02/05/20 cholecalciferol (vitamin D3) 50 2,000 unit PO DAILY 01/25/18 02/05/20 mcg (2,000 unit) tablet diclofenac sodium 1 % topical gel 4 gm TP QID 01/25/18 01/09/20 furosemide 20 mg tablet 20 mg PO DAILY PRN tab 01/25/18 02/05/20 ibuprofen 800 mg tablet 800 mg PO Q8H PRN tab 01/25/18 02/05/20 loratadine 10 mg tablet 10 mg PO DAILY 01/25/18 05/12/20 pantoprazole 40 mg tablet,delayed 40 mg PO DAILY 03/05/18 05/12/20 release baclofen 10 mg tablet 10 mg PO BID 30 Days #60 tab 08/22/19 02/05/20 gabapentin 600 mg tablet 600 mg PO QID 30 Days #120 tab 08/22/19 05/12/20 oxycodone-acetaminophen 10 mg-325 1 tab PO Q4H PRN 28 Days #140 tab 04/30/20 05/12/20 mg tablet MDD 5 tablets/day baclofen 10 mg PO BID 05/12/20 05/12/20 pantoprazole 40 mg PO ONCE 05/12/20 05/12/20 Previous Rx's Medication Instructions Recorded guaifenesin 400 mg tablet 400 mg PO Q6H PRN PRN #120 tab 01/01/18 baclofen 10 mg tablet 10 mg PO BID 30 Days #60 tab 08/22/19 gabapentin 600 mg tablet 600 mg PO QID 30 Days #120 tab 08/22/19 oxycodone-acetaminophen 10 mg-325 1 tab PO Q4H PRN 28 Days #140 tab 04/30/20 mg tablet MDD 5 tablets/day Allergies Allergy/AdvReac Type Severity Reaction Status Date / Time azithromycin Allergy Mild unknown Verified 05/12/20 19:18 hydromorphone [From Dilaudid] AdvReac Unverified 05/12/20 19:18 General CASA: 2 Review of Systems <Jessie Mensah DO - Last Filed: 05/13/20 11:36> All systems reviewed & are unremarkable except as noted in HPI and below Constitutional Constitutional: Reports as per HPI, Denies chills and Denies fever(s) Eyes Eyes: Denies blurry vision ENT Ears, Nose, Mouth, and Throat: Denies dizziness, Denies sore throat and Denies throat swelling Cardiovascular Cardiovascular: Denies chest pain and Denies dyspnea Respiratory Respiratory: Denies cough and Denies dyspnea Gastrointestinal Gastrointestinal: Denies abdominal pain, Reports diarrhea and Denies vomiting Genitourinary Genitourinary: Denies hematuria and Denies dysuria Musculoskeletal Musculoskeletal: Denies back pain and Denies numbness Integumentary/Breasts Skin/Breast: Denies lesions and Denies rash Neurologic Neurologic: Denies dizziness, Denies localized weakness and Denies numbness Allergic/Immunologic Allergic/Immunologic: Denies throat swelling PFSH <Jessie Mensah DO - Last Filed: 05/13/20 11:36> Medical History Allergic rhinitis Anxiety Chronic low back pain Chronic low back pain Chronic neck pain COPD (chronic obstructive pulmonary disease) severe COPD (chronic obstructive pulmonary disease) Degenerative joint disease of cervical spine Degenerative joint disease of spine Dependence on supplemental oxygen Depression Edema Facet syndrome History of shingles Hx of laminectomy Hyperlipidemia Lumbar radiculopathy Lung mass primary malignant neoplasm of right upper lobe of lung Morbid obesity Osteoporosis Sacroiliac joint dysfunction Syncope and collapse Surgical History H/O shoulder surgery H/O Spinal surgery H/O umbilical hernia repair History of bunionectomy S/P excision of lipoma Social History Smoking/Tobacco Use Status: Former Tobacco Use Smoking risk assessment performed?: Yes Alcohol Intake: never Drug use: Never Substance use type: does not use Housing: house Number of Children: 4 What type of physical activity do you participate in: none Do you feel safe at home: Yes Do you feel safe in your relationship?: Yes Exam <Jessie Mensah DO - Last Filed: 05/13/20 11:36> Const General: cooperative, healthy appearing and no acute distress [facility] Head: normal to inspection Face and sinus: normal facial exam Eyes General: appearance normal, both eyes and all related structures EOM: EOM intact bilaterally Neck Neck: normal visual inspection and No submandibular swelling Lymphatic: no lymphadenopathy noted Chest Chest: normal inspection of the chest and no tenderness Resp Effort & Inspection: normal respiratory effort and able to speak in complete sentences Auscultation: clear to auscultation bilaterally Cardio Rate: regular rate Rhythm: regular rhythm GI Inspection: obesity Palpation: soft, not firm, not rigid and tender in the epigastrum, in the LLQ, in the RLQ and suprapubicly Auscultation: hypoactive bowel sounds Rectal Exam - female: visual inspection normal Skin General skin exam: no rashes or lesions noted Neuro General: patient alert, patient awake and patient oriented x3 Cognition: normal cognition Speech: speech normal Motor: muscle tone normal throughout Sensory Exam: no sensory deficits noted Extrem General: normal to inspection, full ROM, capillary refill normal, no calf tenderness bilaterally and no edema Psych Appearance: grossly normal Mental Status: mental status grossly normal Speech and Movement: speech and movement normal Affect: normal affect Sign Out <Jessie Mensah DO - Last Filed: 05/13/20 11:36> Sign Out Data: Sign Out Comment: Follow-up with labs and imaging and final disposition. Last updated by Jessie Mensah DO at 05/12/20 19:51
--- NOTE | 2020-05-12 19:30 | DI.CT_ITS ---
EXAM: CT CHEST/ABD/PEL W CLINICAL HISTORY: diffuse abd pain, urinary frequency. TECHNIQUE: Imaging Protocol: Axial computed tomography images with coronal and sagittal reformatted images were created and reviewed CONTRAST MATERIAL: Intravenous: Omnipaque 350 Contrast volume:100 ml Oral: None FINDINGS: CHEST: LUNGS: There are advanced COPD emphysematous changes. Again noted is a previously described concerni ng nodule in the posterior aspect of the right upper lobe although this does not appear to have appre ciably increased in size when compared to the CT scan of December 2017.. Measures approximately 2.8 x 1.5 cm. It contains some calcification. Atelectasis and mild infiltrate in the lateral right lung base is again noted. There are no pleural of the there there is also some unchanged atelectasis-infi ltrate the posterior basal segment of the right lower lobe. There are no pleural effusions. No new focal left lung findings. No new findings in the trachea and mainstem bronchi. There is now a large mass with in the left atrium extending into the right upper lobe pulmonary veins . Clot is does not appear to extend into the right lower lobe pulmonary veins and their is no intral uminal thrombus within the pulmonary veins on the opposite-left side. MEDIASTINUM: As above. No prominent adenopathy. Visualized thyroid unremarkable. CARDIAC: Heart size is normal. There is no pericardial effusion.Caliber of the thoracic aorta is wit hin normal limits. Left atrial finding described above. OSSEOUS: No significant osseous lesions.. ABDOMEN: There is no ascites. LIVER: There are no focal hepatic lesions nor dilatation of intrahepatic ducts. GALLBLADDER/BILIARY: No obvious gallbladder pathology. CBD is not dilated. PANCREAS: No evidence of pancreatic mass nor dilatation of the pancreatic duct. SPLEEN: Spleen is not enlarged. There are no intrasplenic lesions. Splenic and portal veins are vance nt. ADRENALS: There are no significant adrenal masses. KIDNEYS: No calculi nor hydronephrosis. No solid renal masses. No cysts evident. ABDOMINAL AORTA: Abdominal aorta is not enlarged and there is no [id number] adenopat hy. ABDOMINAL WALL/GI: There is anterior abdominal wall umbilical hernia which contains fat and no bowel loops. No bowel obstruction. PELVIS: LYMPH NODES: There is no intrapelvic nor inguinal adenopathy. GI: Sigmoid diverticuli without evidence of acute diverticulitis. Colon is collapsed.. URINARY BLADDER: No calculi nor masses evident REPRODUCTIVE: Uterus is surgically absent. OSSEOUS: No significant osseous lesions. IMPRESSION: 1. Compared to the prior study of December 2017 there has been development of new findings of grave co ncern. 2. There is a large filling defect within the left atrium and extending into the right upper pulmonar y veins measuring approximately 5 x 3.5 cm. Main differential considerations are thrombus, both non neoplastic and neoplastic/metastatic disease. Also aggressive atrial myxoma. 3. Severe emphysematous COPD bullous disease 4. Previously described partially calcified lobulated right upper lobe nodule does not appear to have increased in size when compared to the 2018 study. There are no pleural effusions. No new significant findings in the abdomen. Uterus is again noted to be surgically absent. Sigmoid diverticulosis without evidence of diverticulitis. RADIATION DOSE DELIVERED: 2,179.89mGy.cm Total DLP DATA REPOSITORY: All CT scans at this facility are submitted to the National Radiology Data Registry (NRDR) Dose Index Registry (DIR) with the [employer] (ACR). RADIATION OPTIMIZATION: All CT scans at this facility use at least one of these dose optimization te chniques: automated exposure control; mA and/or kV adjustment per patient size (includes targeted exa ms where dose is matched to clinical indication); or iterative reconstruction.
[2020-05-12 19:36] LABS: Abs Immature Grans 0.04 10^3/uL (0.0-0.06); Absolute Basophil Count 0.03 10^3/uL (0.0-0.2); Absolute Lymphocyte Count 0.69 10^3/uL (1.2-3.4); Absolute Monocyte Count 1.48 10^3/uL (0.1-0.8); Absolute Neutrophil Count 10.34 10^3/uL (1.2-6.7); Basophils % 0.2; HCT 43.7 % (36.0-46.0); HGB 14.5 g/dL (11.2-15.7); Immature Grans % 0.3; Lymphocytes % 5.5; MCH 30.1 pg (27.0-33.0); MCHC 33.2 % (32.0-36.0); MCV 90.9 fL (80-95); MPV 10.2 fL (8.0-11.0); Monocytes % 11.8; Neutrophils % 82.2; Nucleated RBC 0 %; Platelet Count 247 10^3/uL (130-400); RBC 4.81 10^6/uL (3.93-5.22); RDW 12.3 % (11.7-14.6); RDW-SD 41.3 fL; WBC 12.58 10^3/uL (4.4-10.8)
[2020-05-12 19:53] LABS: ALT 81 U/L (14-59); AST 72 U/L (15-37); Albumin 2.8 g/dL (3.4-5.0); Alkaline Phosphatase 88 U/L (46-116); Anion Gap 2.8 mmol/L (3-11); BUN 29 mg/dL (7-18); Bilirubin, Total 0.4 mg/dL (0.2-1.0); CO2 38.2 mmol/L (21.0-32.0); CREATININE 0.8 mg/dL (0.55-1.02); Calcium 8.6 mg/dL (8.5-10.1); Chloride 89 mmol/L (98-107); Glucose 117 mg/dL (74-106); Potassium 3.1 mmol/L (3.5-5.1); Sodium 130 mmol/L (136-145); Total Protein 7.7 g/dL (6.4-8.2)
[2020-05-12 19:54] LABS: Troponin I < 0.05 ng/mL (<0.06)
[2020-05-12] MEDS: ACETAMINOPHEN 1,000 MG/100 ML BTL 400 MG IVPB (20:05)
[2020-05-12] MEDS: Normal Saline 250 ML 500 ML IV (20:05)
[2020-05-12 20:07] LABS: Lactate 1.4 mmol/L (0.6-1.4)
[2020-05-12] MEDS: Omnipaque 350 MG/ML 100 ML BTL IJ (20:32)
[2020-05-12] MEDS: Normal Saline Flush 10 ML SYR IVP (20:33)
[2020-05-12] MEDS: Normal Saline - Diluent 50 ML VIAL IV (20:33)
[2020-05-12] MEDS: Potassium Chloride 20 MEQ TABCR 40 MEQ PO (20:47)
[2020-05-12 21:07] LABS: Source Nasopharynx
[2020-05-12 21:08] LABS: Bilirubin Moderate (Negative); Blood Large (Negative); Clarity Turbid (Clear); Glucose Negative (Negative); Ketones Negative (Negative); Leukocyte Esterase Small (Negative); Nitrite Negative (Negative); Specific Gravity >= 1.030 (1.005-1.025)
[2020-05-12 21:18] LABS: Bacteria Packed HPF (Negative); C & S Indicated? Yes; WBC >50 HPF (0-5)
--- NOTE | 2020-05-12 21:21 | DI.VRAD_ITS ---
PROCEDURE INFORMATION: Exam: CT Chest With Contrast; Diagnostic Exam date and time: 05/12/2020 7:44 PM Age: 65 years old Clinical indication: Abdominal tenderness; Abdominal pain; Generalized; Shortness of breath; Other: SOB; Patient HX: Diffuse abd pain, urinary frequency R/O colitis, diverticulitis, pyelonephritis TECHNIQUE: Imaging protocol: Diagnostic computed tomography of the chest with contrast. Total images: 2466 Radiation optimization: All CT scans at this facility use at least one of these dose optimization techniques: automated exposure control; mA and/or kV adjustment per patient size (includes targeted exams where dose is matched to clinical indication); or iterative reconstruction. Contrast material: OMNIPAQUE 350; Contrast volume: 100 ml; Contrast route: INTRAVENOUS (IV); COMPARISON: Vascular^CTA CAP PE AORTA COMBO (Adult) 12/27/2017 10:59 PM FINDINGS: Lungs: Again noted is severe bullous emphysema concentrated in bilateral upper lobes but progressing in the lower lobes compared to the prior study. Again noted is an ill-defined nodule in the medial aspect of the right upper lobe. It measures approximately 2.7 by 1.5 cm and has not increased in size from the prior study. There is linear scarring in the medial aspect of both upper lobes. There is mild reticulation at the right lung base. There is no consolidation or ground-glass disease. The central airways are patent. Pleural spaces: No pneumothorax. No pleural effusion. Heart: No cardiomegaly. No pericardial effusion. There is a large filling defect within the left atrium extending into the right upper pulmonary vein. The filling defect covers an area of approximately 5 cm by 3.5 cm. The right inferior and left pulmonary veins appear patent. Pulmonary arteries: There is no filling defect within the central pulmonary arterial tree. Aorta: Minimal atherosclerotic change in a nonaneurysmal thoracic aorta. No evidence of dissection. Lymph nodes: There are scattered small mediastinal nodes which are new but measure less than 1 cm in size. There is no hilar or axillary adenopathy. Intraperitoneal space: Visualized upper abdomen is unremarkable. Bones/joints: No significant bony or joint space abnormality. Soft tissues: Extrathoracic soft tissues are unremarkable. IMPRESSION: 1. Large filling defect within the left atrium and right upper pulmonary vein. Differential includes thrombus, atrial myxoma and metastatic disease. 2. Progressing severe bullous emphysematous disease. 3. Stable right upper lobe nodule. 4. THIS REPORT CONTAINS FINDINGS THAT MAY BE CRITICAL TO PATIENT CARE. The findings were verbally communicated via telephone conference with Dr. Barbour At 9:18 PM EST on 05/12/2020. The findings were acknowledged and understood. PROCEDURE INFORMATION: Exam: CT Abdomen And Pelvis With Contrast Exam date and time: 05/12/2020 7:44 PM Age: 65 years old Clinical indication: Abdominal tenderness; Abdominal pain; Generalized; Shortness of breath; Other: SOB; Patient HX: Diffuse abd pain, urinary frequency R/O colitis, diverticulitis, pyelonephritis TECHNIQUE: Imaging protocol: Computed tomography of the abdomen and pelvis with contrast. Radiation optimization: All CT scans at this facility use at least one of these dose optimization techniques: automated exposure control; mA and/or kV adjustment per patient size (includes targeted exams where dose is matched to clinical indication); or iterative reconstruction. Contrast material: OMNIPAQUE 350; Contrast volume: 100 ml; Contrast route: INTRAVENOUS (IV); COMPARISON: Vascular^CTA CAP PE AORTA COMBO (Adult) 12/27/2017 10:59 PM FINDINGS: Lungs: Lung bases are unremarkable. Liver: Homogeneously enhances without mass. Gallbladder and bile ducts: No calcified stones, wall thickening or biliary dilatation. Pancreas: No mass or peripancreatic edema. Spleen: Homogeneously enhances. No splenomegaly. Adrenal glands: No adrenal nodule. Kidneys and ureters: Kidneys homogeneously enhance. No hydronephrosis. No renal or ureteral calculi. Stomach and bowel: There is no small bowel dilatation. 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 Small bowel loops are noted within the right and left side of the abdomen. Appendix: No inflammation at the expected level of the appendix. Intraperitoneal space: No free air within the abdomen. No free fluid. No pelvic mass or free fluid. Vasculature: There is atherosclerotic change without aortic aneurysm. There is an incidental retroaortic left renal vein. Lymph nodes: No retroperitoneal adenopathy. Urinary bladder: No definite bladder wall thickening. Reproductive: Unremarkable as visualized. Bones/joints: There is degenerative disc disease most significant at L3-L4 and L5-S1. No suspicious lytic or sclerotic bony lesions. Soft tissues: Extra-abdominal soft tissues are unremarkable. IMPRESSION: No acute findings. Dictated and Authenticated by: Marquis Vo MD. Ordering:LUCIO Roman MD
[2020-05-12 22:18] LABS: COVID-19 PCR Negative (Negative); Influenza A PCR Negative (Negative); Influenza B PCR Negative (Negative); RSV PCR Negative (Negative)
--- NOTE | 2020-05-13 04:10 | NUR.NOTE ---
Nursing Note: referral to care management for palliative needs. faxed 05/13/2020 libl
--- NOTE | 2020-05-15 16:31 | W.ED.FU ---
I reviewed urine cx growing ecoli >100K and sensitivities. I reviewed chart from visit, no abx prescribed, mention made to potential uti. I called patient and discussed results. Will call prescription for keflex 500mg BID x7days to her pharmacy. Discussed plan with patient. All questions addressed.
== END 2020-05-12 22:42 | disposition home or self-care (01) ==
PROVIDERS: Physician Assistant; Emergency Provider Emergency Medicine; PCP Nurse Practitioner Family
DX: R19.7 Diarrhea, unspecified (principal); I51.89 Other ill-defined heart diseases; C34.91 Malignant neoplasm of unspecified part of right bronchus or lung; R10.30 Lower abdominal pain, unspecified; J44.9 Chronic obstructive pulmonary disease, unspecified; Z99.81 Dependence on supplemental oxygen; Z87.891 Personal history of nicotine dependence; Z20.822 Contact with and (suspected) exposure to COVID-19
CPT/HCPCS: 36415; 74177; 80053; 87077; 87637; 93005; 96361; 96365; 99285; 71260; 81003; 81015; 83605; 83735; 84484; 85025; 87086; 87186; 93010; 99284; J0131; J3490